=== PATIENT | female | born 1985 | race Two or more races ===

== ENCOUNTER 2023-03-13 14:11 | Emergency (ER) | payer BC ==
[~2023-03-13] VITALS: Ht 154.9 cm; Wt 70.5 kg
[2023-03-13 14:17] VITALS: BP 155/69
== END 2023-03-13 15:11 | disposition home or self-care (01) ==
LOC: ER 14:11
DX: S93.491A Sprain of other ligament of right ankle, initial encounter (principal); X50.1XXA Overexertion from prolonged static or awkward postures, initial encounter; Y93.89 Activity, other specified; Y92.89 Other specified places as the place of occurrence of the external cause; Y99.8 Other external cause status
CPT/HCPCS: 73610; 73630; 99284; L4360

== ENCOUNTER 2024-06-04 17:45 | Emergency (ER) | payer BC ==
[~2024-06-04] VITALS: Ht 156.2 cm; Wt 71.8 kg
[2024-06-04] MEDS: prednisone 10mg tablet PO ONE (18:21)
[2024-06-04] MEDS: CefTRIAXone 1000mg IM Kit (w/lidocaine diluent) IM ONE (18:21)
[2024-06-04] MEDS ORDERED: PRED50TA PO (18:21)
[2024-06-04] MEDS ORDERED: CEPH-585 PO (18:21)
[2024-06-04] MEDS ORDERED: HYDR-3972 PO (18:21)
[2024-06-04] MEDS: HYDROcodone/acetaminophen 10/325mg tab PO ONE (18:30)
[2024-06-04 18:35] VITALS: BP 153/105; PULSE 78; TEMP 99.1; O2SAT 97
[2024-06-04 18:38] VITALS: RESP 17
== END 2024-06-04 18:37 | disposition home or self-care (01) ==
LOC: ER 17:45
DX: H60.92 Unspecified otitis externa, left ear (principal)
CPT/HCPCS: 87070; 96372; 99283; J0696; J7512